=== PATIENT | female | born 1965 | race Caucasian/White ===

== ENCOUNTER 2017-03-16 21:00 | Emergency (ER) | payer MEDICAID ==
[~2017-03-16] VITALS: Ht 157.5 cm; Wt 54.4 kg
--- NOTE | 2017-03-16 21:11 | NUR ---
PT AMBUALTORY TO ER BED 1 PT C/O "LOWER ABD PAIN X1 DAY"; DENIES N/V. PT AOX4 RR EVEN AND UNLABORED. NO SOB NOTED. NAD NOTED. NO NVD AT THIS TIME. PT NOT DIAPHORETIC. PT GOWNED AND PLACED ON MONITOR WAITING FOR MD MAJOR.
--- NOTE | 2017-03-16 21:31 | NUR ---
NEISHA ESCAMILLA AT BEDSIDE FOR EVAL.
[2017-03-16 21:49] LABS: BASOPHILS % (AUTO) 0.2 % (0.0-2.0); EOSINOPHILS % (AUTO) 0.2 % (0.0-6.0); HEMATOCRIT 40 % (33-45); HEMOGLOBIN 13.3 g/dL (11.5-14.8); LYMPHOCYTES # (AUTO) 1.1 /CMM (0.8-4.8); LYMPHOCYTES % (AUTO) 8.9 % (20.0-44.0); MEAN CORPUSCULAR HEMOGLOBIN 27 PG (26.0-33.0); MEAN CORPUSCULAR HGB CONC 34 g/dl (31.0-36.0); MEAN CORPUSCULAR VOLUME 81 fL (82-100); MONOCYTES # (AUTO) 0.7 /CMM (0.1-1.30); MONOCYTES % (AUTO) 5.9 % (2.0-12.0); NEUTROPHILS # (AUTO) 10.1 /CMM (1.8-8.9); NEUTROPHILS % (AUTO) 84.8 % (43.0-81.0); PLATELET COUNT (AUTO) 230 /CMM (150-450); RDW COEFFICIENT OF VARIATION 12.3 (11.5-15.0); RED BLOOD CELL COUNT(AUTO) 4.88 MIL/uL (4.0-5.2); WHITE BLOOD COUNT (AUTO) 11.9 K/uL (4.3-11.0)
[2017-03-16] MEDS ORDERED: ONDANSETRON HCL/PF 4 MG/2 ML VIAL ONE (21:56)
[2017-03-16 21:57] LABS: CALCIUM, SERUM 8.8 mg/dL (8.5-10.1); CREATININE 0.7 mg/dL (0.6-1.3)
[2017-03-16] MEDS ORDERED: IV NS 0.9% 2,000 ML ONE (21:57)
[2017-03-16] MEDS ORDERED: IV SET PRIMARY 1 EA INFUS.SET MC ONE (21:57)
[2017-03-16] MEDS ORDERED: ONDANSETRON HCL/PF 4 MG/2 ML VIAL IVP ONE (22:00)
[2017-03-16] MEDS ORDERED: IV NS 0.9% 1,000 ML BAG IV ONE (22:00)
[2017-03-16 22:05] LABS: ALBUMIN 3.8 g/dL (3.4-5.0); BILIRUBIN,DIRECT 0.1 mg/dL (0.0-0.2); BILIRUBIN,TOTAL 0.8 mg/dL (0.2-1.0); TOTAL PROTEIN, SERUM 7.6 g/dL (6.4-8.2)
[2017-03-16] MEDS ORDERED: POTASSIUM CHLORIDE 20 MEQ TAB.PRT.SR PO ONE ×2 (22:30→22:31)
--- NOTE | 2017-03-16 22:34 | NUR ---
URINE COLLECTED. CALLED LAB FOR NON PROFIT DIRECTOR.
--- NOTE | 2017-03-16 23:29 | NUR ---
PT PASSED PO CHALLENGE. PER [employer] FRANCINE MADE AWARE.
[2017-03-16 23:47] LABS: APPEARANCE,URINE CLEAR (CLEAR); BILIRUBIN,URINE NEGATIVE (NEGATIVE); BLOOD, URINE NEGATIVE Ery/uL (NEGATIVE); KETONES,URINE 3+ (NEGATIVE); LEUKOCYTE ESTERASE ,URINE 1+ (NEGATIVE); NITRITE, URINE NEGATIVE (NEGATIVE); PH,URINE 6.5 (5.0-8.0); PROTEIN,URINE NEGATIVE (NEGATIVE); UGLUCOSE NEGATIVE (NEGATIVE); UROBILINOGEN,URINE 0.2 EU/dL (0.2)
[2017-03-16 23:51] LABS: COLOR,URINE Light yellow (YELLOW)
[2017-03-16 23:56] LABS: BACTERIA,URINE 1+ /HPF (None Seen); PREGNANCY TEST URINE QUAL NEGATIVE (NEGATIVE); RBC,URINE 0-2 /HPF (0-2); SQUAMOUS EPITHELIAL CELL,UR Few /HPF (None Seen)
--- NOTE | 2017-03-17 00:16 | NUR ---
NEISHA ESCAMILLA AT BEDSIDE SPEAKING TO PT REGARDING RESULTS.
--- NOTE | 2017-03-17 00:18 | NUR ---
IV removed. Catheter intact and site benign. Pressure and 4x4 applied to site. No bleeding noted. Patient discharged to home in stable condition. Written and verbal after care instructions given. Patient verbalizes understanding of instruction. ambulatory with a steady gait
[2017-03-17 00:20] VITALS: BP 116/72
== END 2017-03-17 00:20 | disposition home or self-care (01) ==
LOC: ER 21:02
DX: R11.2 Nausea with vomiting, unspecified (principal); R19.7 Diarrhea, unspecified; E87.6 Hypokalemia; R82.71 Bacteriuria; E03.9 Hypothyroidism, unspecified
CPT/HCPCS: 36415; 80048; 80076; 81001; 83690; 84703; 85025; 87086; 96361; 99285; 96374; A4606; J2405; J7030; Z7610; 81000-TC

== ENCOUNTER 2017-03-20 13:22 | Inpatient (IN) | payer MEDICAID ==
[~2017-03-20] VITALS: Ht 157.5 cm; Wt 50.8 kg
[2017-03-20] MEDS ORDERED: ONDANSETRON HCL/PF 4 MG/2 ML VIAL IVP ONE (13:30)
[2017-03-20] MEDS ORDERED: IV NS 0.9% 1,000 ML BAG IV ONE (13:30)
[2017-03-20] MEDS ORDERED: IV NS 0.9% 1,000 ML ONE (13:33)
[2017-03-20] MEDS ORDERED: IV SET PRIMARY 1 EA INFUS.SET MC ONE (13:33)
[2017-03-20] MEDS ORDERED: ONDANSETRON HCL/PF 4 MG/2 ML VIAL ONE (13:33)
--- NOTE | 2017-03-20 13:45 | NUR ---
PT CAME IN FOR ABD PAIN X 3 DAYS. WAS RECENTLY HERE FOR SAME SYMPTOMS. DENIES N/V/D. NO FEVER. VSS. SEEN BY MD FOR EVAL. SAFETY AND COMFORT MEASURES PROVIDE. WILL MONITOR.
[2017-03-20 13:54] LABS: BASOPHILS % (AUTO) 0.4 % (0.0-2.0); EOSINOPHILS # (AUTO) 0.1 /CMM (0.0-0.7); EOSINOPHILS % (AUTO) 1.2 % (0.0-6.0); HEMATOCRIT 42 % (33-45); HEMOGLOBIN 14.1 g/dL (11.5-14.8); LYMPHOCYTES # (AUTO) 1.3 /CMM (0.8-4.8); LYMPHOCYTES % (AUTO) 19.3 % (20.0-44.0); MEAN CORPUSCULAR HEMOGLOBIN 27 PG (26.0-33.0); MEAN CORPUSCULAR HGB CONC 33 g/dl (31.0-36.0); MEAN CORPUSCULAR VOLUME 81 fL (82-100); MONOCYTES # (AUTO) 0.7 /CMM (0.1-1.30); MONOCYTES % (AUTO) 10.3 % (2.0-12.0); NEUTROPHILS # (AUTO) 4.7 /CMM (1.8-8.9); NEUTROPHILS % (AUTO) 68.8 % (43.0-81.0); PLATELET COUNT (AUTO) 300 /CMM (150-450); RDW COEFFICIENT OF VARIATION 13.1 (11.5-15.0); RED BLOOD CELL COUNT(AUTO) 5.26 MIL/uL (4.0-5.2); WHITE BLOOD COUNT (AUTO) 6.9 K/uL (4.3-11.0)
[2017-03-20 14:13] LABS: CREATININE 0.8 mg/dL (0.6-1.3); POTASSIUM 3.1 mmol/L (3.5-5.1)
[2017-03-20 14:17] LABS: ALBUMIN 3.8 g/dL (3.4-5.0); BILIRUBIN,DIRECT 0.1 mg/dL (0.0-0.2); BILIRUBIN,TOTAL 0.4 mg/dL (0.2-1.0)
--- NOTE | 2017-03-20 14:20 | NUR ---
PT MEDICATED ORDERED.
[2017-03-20 14:27] LABS: APPEARANCE,URINE Hazy (CLEAR); BILIRUBIN,URINE Negative (NEGATIVE); BLOOD, URINE Trace-intact Ery/uL (NEGATIVE); COLOR,URINE Yellow (YELLOW); KETONES,URINE 15 (NEGATIVE); LEUKOCYTE ESTERASE ,URINE Trace (NEGATIVE); NITRITE, URINE Negative (NEGATIVE); PROTEIN,URINE Trace mg/dl (NEGATIVE); UGLUCOSE Negative (NEGATIVE)
[2017-03-20 14:29] LABS: PREGNANCY TEST URINE QUAL NEGATIVE (NEGATIVE)
[2017-03-20 14:33] LABS: BACTERIA,URINE None seen /HPF (None Seen); MUCUS,URINE Few /LPF (None Seen); RBC,URINE 0-3 /HPF (0-2); SQUAMOUS EPITHELIAL CELL,UR Few /HPF (None Seen)
[2017-03-20] MEDS ORDERED: LEVOFLOXACIN 750 MG /D5W 150ML 150 ML IV ONE (15:30)
[2017-03-20] MEDS ORDERED: METRONIDAZOLE 500MG/ NS 100ML 100 ML IV ONE (15:30)
--- NOTE | 2017-03-20 15:46 | NUR ---
CALLED DR BARBOSA'S ANSWERING SERVICE AND REFERRED TO NUMBER FOR [facility] [employer] [phone]
[2017-03-20] MEDS ORDERED: OMEP20TA68 PO (15:52)
[2017-03-20] MEDS ORDERED: LEVO100T9 PO (15:52)
--- NOTE | 2017-03-20 16:00 | NUR ---
PAGED DR ZACK ROLDAN FOR ADMISSION
[2017-03-20] MEDS ORDERED: Z GUARD REMEDY 2 OZ OINT TP PRN (17:00)
[2017-03-20] MEDS ORDERED: HYDROCODONE/APAP 5/325MG 1 EACH TABLET PO PRN (17:00)
[2017-03-20] MEDS ORDERED: ZOLPIDEM TARTRATE 5 MG TABLET PO PRN (17:00)
[2017-03-20] MEDS ORDERED: MAGNESIUM HYDROXIDE 30 ML UDC PO PRN (17:00)
[2017-03-20] MEDS ORDERED: MAG HYDROX/AL HYDROX/SIMETH 30 ML UDC PO PRN (17:00)
[2017-03-20] MEDS ORDERED: ACETAMINOPHEN 325 MG TABLET PO PRN (17:00)
[2017-03-20] MEDS ORDERED: ONDANSETRON HCL/PF 4 MG/2 ML VIAL IVP PRN (17:00)
--- NOTE | 2017-03-20 17:09 | NUR ---
REPORT GIVEN TO ELIAN SHIPMAN FOR MS [id number]
--- NOTE | 2017-03-20 17:30 | NUR ---
MS RN NOTES PATIENT ARRIVED TO UNIT IN STABLE CONDITION. PATIENT C/O ABDOMINAL PAIN. PATIENT STATES SHE IS HUNGRY. WILL ORDER CLEAR LIQUID TRAY FOR HER. PATIENT IS A/OX4. NO S/S OF DISTRESS NOTED. NO SOB NOTED. ORIENTED PATIENT TO THE ROOM. IV IS PATENT AND INTACT IN L HAND 20G. CALL LIGHT IS WITHIN REACH. BED IS IN LOWEST, LOCKED POSITION. WILL CONTINUE TO MONITOR THROUGHOUT SHIFT.
[2017-03-20] MEDS ORDERED: METRONIDAZOLE 500MG/ NS 100ML 500 MG in PREMIX 1 EA IV SCH (18:00)
[2017-03-20] MEDS ORDERED: LEVOFLOXACIN 750 MG /D5W 150ML 750 MG in PREMIX 1 EA IV SCH (18:00)
[2017-03-20] MEDS ORDERED: MORPHINE SULFATE INJ 2 MG/ML DISP.SYRIN IV PRN (18:00)
--- NOTE | 2017-03-20 19:10 | NUR ---
MS RN NOTES PATIENT IS A/OX4. NO DISTRESS NOTED. NO SOB NOTED. IV IS PATENT AND INTACT. ALL PATIENT NEEDS HAVE BEEN MET. PATIENT TOLERATED CLEAR LIQUID DIET WELL. CALL LIGHT WITHIN REACH. BED IS IN LOWEST, LOCKED POSITION. WILL ENDORSE CARE TO PM SHIFT.
[2017-03-20] MEDS ORDERED: IV SET PRIMARY PUMP SET 1 EA INFUS.SET MC ONE (19:17)
[2017-03-20] MEDS: IV 1/2NS 1000 ML 1,000 ML IV PRN (19:24)
--- NOTE | 2017-03-20 19:30 | NUR ---
MS RN NOTE RECEIVED PATIENT AWAKE ALERT ND ORIENTED IN BED. DENIES ANY PAIN OR DISCOMFORT AT THIS TIME. IV SITE INTACT, WITH FLUIDS RUNNING ORDERED. NO SOB OR RESPIRATORY DISTRESS NOTED. BED LOCKED AND IN LOWEST POSITION. SIDE RAILS UP, CALL LIGHT WITHIN REACH. WILL CONTINUE TO MONITOR.
[2017-03-20 20:00] VITALS: BP 98/52
[2017-03-20 22:00] VITALS: BP 98/52
[2017-03-21 06:54] LABS: CHOLESTEROL 182 mg/dL (<200); HDL CHOLESTEROL 39 mg/dL (40-60); LDL 109 mg/dL (0-99); TRIGLYCERIDES 73 mg/dL (30-150)
[2017-03-21 06:59] LABS: BASOPHILS % (AUTO) 0.5 % (0.0-2.0); EOSINOPHILS # (AUTO) 0.1 /CMM (0.0-0.7); EOSINOPHILS % (AUTO) 2.1 % (0.0-6.0); HEMATOCRIT 37 % (33-45); HEMOGLOBIN 12.5 g/dL (11.5-14.8); LYMPHOCYTES # (AUTO) 1.4 /CMM (0.8-4.8); LYMPHOCYTES % (AUTO) 30.8 % (20.0-44.0); MEAN CORPUSCULAR HEMOGLOBIN 27 PG (26.0-33.0); MEAN CORPUSCULAR HGB CONC 34 g/dl (31.0-36.0); MEAN CORPUSCULAR VOLUME 80 fL (82-100); MONOCYTES # (AUTO) 0.5 /CMM (0.1-1.30); MONOCYTES % (AUTO) 10.2 % (2.0-12.0); NEUTROPHILS # (AUTO) 2.6 /CMM (1.8-8.9); NEUTROPHILS % (AUTO) 56.4 % (43.0-81.0); PLATELET COUNT (AUTO) 243 /CMM (150-450); RDW COEFFICIENT OF VARIATION 13.2 (11.5-15.0); RED BLOOD CELL COUNT(AUTO) 4.63 MIL/uL (4.0-5.2); WHITE BLOOD COUNT (AUTO) 4.6 K/uL (4.3-11.0)
[2017-03-21 07:00] LABS: CALCIUM, SERUM 8.4 mg/dL (8.5-10.1); CARBON DIOXIDE 29 mmol/L (21-32); CHLORIDE 106 mmol/L (98-107); CREATININE 0.5 mg/dL (0.6-1.3); GLUCOSE 95 mg/dL (74-106); MAGNESIUM 1.6 mg/dL (1.8-2.4); PHOSPHORUS 3.2 mg/dL (2.5-4.9); POTASSIUM 3.4 mmol/L (3.5-5.1); SODIUM SERUM 143 mmol/L (136-145); UREA NITROGEN, BLOOD 3 mg/dL (7-18)
[2017-03-21 07:21] LABS: THYROID STIMULATING HORMONE < 0.007 uIU/mL (0.358-3.74)
--- NOTE | 2017-03-21 07:31 | NUR ---
AM RN NOTE Received patient awake, lying in her bed. Denies any pain at this time. IV site intact and patent. Bed in low locked positon. Will continue to monitor.
[2017-03-21 08:00] VITALS: BP 117/63
[2017-03-21] MEDS: PANTOPRAZOLE 40 MG TABLET.DR PO SCH (08:09)
[2017-03-21] MEDS: LEVOTHYROXINE SODIUM 100 MCG TABLET PO SCH (08:09)
[2017-03-21] MEDS ORDERED: POTASSIUM CHLORIDE 20 MEQ TAB.PRT.SR PO SCH (11:00)
[2017-03-21] MEDS ORDERED: SECONDARY IV SET 1 EA INFUS.SET MC ONE ×2 (11:23→21:48)
[2017-03-21] MEDS: Magnesium 1GM/D5W 100ML PREMIX 100 ML IV SCH ×2 (11:29→13:19)
[2017-03-21 16:00] VITALS: BP 96/56
[2017-03-21] MEDS: LEVOFLOXACIN 750 MG /D5W 150ML 750 MG in PREMIX 1 EA IV SCH (17:07)
--- NOTE | 2017-03-21 18:37 | NUR ---
AM RN NOTE Patient lying in her bed watching TV, no acute distress noted. IV site intact and patent. Will endorse care to next shift.
[2017-03-21 20:00] VITALS: BP 105/64
[2017-03-21 22:00] VITALS: BP 105/64
[2017-03-21] MEDS: METRONIDAZOLE 500MG/ NS 100ML 500 MG in PREMIX 1 EA IV SCH (22:04)
[2017-03-21] MEDS ORDERED: METRONIDAZOLE 250 MG TABLET PO SCH (23:00)
[2017-03-21] MEDS ORDERED: METRONIDAZOLE 500MG/ NS 100ML 500 MG in PREMIX 1 EA IV SCH (23:00)
--- NOTE | 2017-03-21 23:30 | NUR ---
RN NOTES: NOTED THAT L HAND PIV SITE SLIGHTLY SWOLLEN AND TENDER. REMOVED IV. ATTEMPTED TO REINSERT 2X. REINSERTED NEW PIV OVER R HAND/ THUMB G24, INTACT AND PATENT TO FLUSH. ELEVATED L HAND ON PILLOW. WILL CONT TO MONITOR.
[2017-03-22] MEDS: METRONIDAZOLE 500MG/ NS 100ML 500 MG in PREMIX 1 EA IV SCH ×4 (05:44→23:27)
--- NOTE | 2017-03-22 06:13 | NUR ---
MS RN NOTE PATIENT STABLE. DENIES ANY PAIN OR DISCOMFORT. IV SITE TO RIGHT THUMB INTACT, WITH FLUIDS RUNNING ORDERED. NO INFILTRATION NOTED. ALL NEEDS MET AND ATTENDED TO. WILL ENDORSE TO DAY SHIFT FOR TEVIN.
[2017-03-22] MEDS: LEVOTHYROXINE SODIUM 100 MCG TABLET PO SCH (06:38)
[2017-03-22] MEDS: PANTOPRAZOLE 40 MG TABLET.DR PO SCH (06:38)
[2017-03-22 07:01] LABS: CALCIUM, SERUM 8.5 mg/dL (8.5-10.1); CREATININE 0.6 mg/dL (0.6-1.3); MAGNESIUM 2.1 mg/dL (1.8-2.4); POTASSIUM 3.8 mmol/L (3.5-5.1)
--- NOTE | 2017-03-22 07:51 | NUR ---
MS RN NOTES RECEIVED PATIENT RESTING IN BED, AWAKE AND ORIENTED X4. NOT IN ANY DISTRESS, NO S/S OF DISCOMFORT, PAIN NOTED. NO SOB, ON ROOM AIR WITH 96% 02 SAT. PATIENT DENIES ABDOMINAL PAIN AT THIS TIME. IV IS PATENT AND INTACT TO L HAND 20G IV FLUIDS INFUSING AT 75CC/HR. SAFETY MEASURES RENDERED, CALL LIGHT IS WITHIN REACH. BED IS IN LOWEST, LOCKED POSITION. WILL CONTINUE TO MONITOR.
[2017-03-22 08:00] VITALS: BP 106/74
[2017-03-22 16:00] VITALS: BP 112/69
--- NOTE | 2017-03-22 16:20 | NUR ---
MS/RN NOTES PATIENT RESTING IN BED COMFORTABLY. NO CHANGES NOTED. APPEARS CALM AND STABLE WITH SISTER AT BEDSIDE. PATIENT COOPERATIVE WITH ATTENDED CARE. WILL CONTINUE TO MONITOR.
--- NOTE | 2017-03-22 17:24 | NUR ---
MS/RN NOTES PATIENT APPEARS CALM AND RESTFUL. STABLE WITH NO SIGNIFICANT CHANGES. IV ANTIBIOTICS ADMINISTERED ORDERED. DIET ADVANCED, TOLERATING WELL WITH NO COMPLICATIONS, NO S/S OF ANTIBIOTIC REACTION/SIDE EFFECT NOTED.
[2017-03-22] MEDS: LEVOFLOXACIN 750 MG /D5W 150ML 750 MG in PREMIX 1 EA IV SCH (18:27)
--- NOTE | 2017-03-22 18:40 | NUR ---
MS/RN NOTES PATIENT RESTING IN BED COMFORTABLY. STABLE WITH NO CHANGES IN CONDITION. HUBERT GRAVES AT BEDSIDE. DISCUSSED PLAN OF CARE WITH PATIENT/ FAMILY AND AGREED. PATIENT TO STAY NPO FOR EGD TOMORROW. ALL MEDICATIONS AND ANTIBIOTICS GIVEN SCHEDULED. ALL NEEDS MET AND ATTENDED, SAFETY MEASURES RENDERED. WILL ENDORSE CARE TO LYE MACHINE OPERATOR FOR TEVIN.
--- NOTE | 2017-03-22 19:40 | NUR ---
MS RN NOTE: PATIENT RESTING IN BED, NO ACUTE DISTRESS NOTED. BREATHING EVEN AND UNLABORED, NO SOB NOTED. IV TO RIGHT THUMB IN PLACE. PATIENT WILL POSSIBLY HAVE EGD IN MORNING AND INFORMED PATIENT NOT TO EAT OR DRINK AFTER MIDNIGHT. CONSENT TO BE SIGNED. BED LOCKED AND IN LOWEST POSITION, CALL LIGHT IN REACH. WILL CONTINUE TO MONITOR.
[2017-03-22 20:14] VITALS: BP 139/85
[2017-03-22] MEDS ORDERED: SECONDARY IV SET 1 EA INFUS.SET MC ONE (23:13)
[2017-03-22] MEDS ORDERED: IV SET PRIMARY PUMP SET 1 EA INFUS.SET MC ONE (23:14)
[2017-03-22] MEDS: IV 1/2NS 1000 ML 1,000 ML IV PRN (23:27)
--- NOTE | 2017-03-23 00:15 | NUR ---
MS RN NOTE: PATIENT NPO AND EXPLAINED TO PATIENT THAT SHE CAN NOT EAT OR DRINK ANYTHING FOR POSSIBLE EGD IN MORNING. CONSENT SIGNED AND FILLED IN CHART. WILL CONTINUE TO MONITOR.
[2017-03-23] MEDS ORDERED: SUCRALFATE 1 G/10 ML UDC PO ONE (01:30)
[2017-03-23] MEDS ORDERED: SUCRALFATE 1 G/10 ML UDC ONE (01:35)
[2017-03-23] MEDS: METRONIDAZOLE 500MG/ NS 100ML 500 MG in PREMIX 1 EA IV SCH ×3 (04:40→17:13)
--- NOTE | 2017-03-23 04:45 | NUR ---
MS RN NOTE: PATIENT COMPLAINS OF NAUSEA, AND HEARTBURN. ZOFRAN 4MG IV GIVEN PER MD ORDER. WILL CONTINUE TO MONITOR.
--- NOTE | 2017-03-23 06:10 | NUR ---
MS RN NOTE: PATIENT RESTING IN BED, NO ACUTE DISTRESS NOTED. BREATHING EVEN AND UNLABORED, NO SOB NOTED. IV TO RIGHT THUMB IN PLACE, INFUSING 1/2NS AT 75 ML/HR. BED LOCKED AND IN LOWEST POSITION, CALL LIGHT IN REACH. WILL ENDORSE TO DAY NURSE TO CONTINUE WITH PLAN OF CARE.
--- NOTE | 2017-03-23 07:56 | NUR ---
RN NOTES PER REPORT FROM ENVIRONMENTAL SERVICES SPECIALIST. PATIENT WAS TOLD BY MD THAT SHE WOULD HAVE A EGD TODAY. CONSENTS WERE OBTAINED. DR GRAVES WROTE IN HIS NOTES THAT THE PATIENT MAY HAVE EGD TODAY AND ALSO TO HAVE EGD OUTPATIENT. WILL CLARIFY WITH MD TODAY IF PATIENT WILL BE HAVING EGD BEFORE ADMINISTERING MORNING MEDS.
[2017-03-23 08:00] VITALS: BP 99/55
[2017-03-23] MEDS: PANTOPRAZOLE 40 MG TABLET.DR PO SCH (08:50)
[2017-03-23] MEDS: LEVOTHYROXINE SODIUM 100 MCG TABLET PO SCH (08:52)
[2017-03-23] MEDS ORDERED: LEVO500T15 PO (11:36)
[2017-03-23] MEDS ORDERED: OMEP1CAP PO (11:36)
[2017-03-23] MEDS ORDERED: SUCR1ORA2 PO (11:36)
[2017-03-23] MEDS: SUCRALFATE 1 G/10 ML UDC PO SCH ×2 (12:02→17:13)
--- NOTE | 2017-03-23 16:44 | NUR ---
RN NOTES PATIENT IS REFUSING DISCHARGE PICTURES. STATES, "THERE IS NOTHING THERE, I DON'T THINK YOU NEED IT." I EXPLAINED TO THE PATIENT THE IMPORTANCE OF TAKING PHOTOS OF SKIN ISSUES AT DISCHARGE, BUT PATIENT IS STILL REFUSING.
[2017-03-23] MEDS ORDERED: LEVOFLOXACIN (750 MG) 750 MG TABLET PO SCH (18:00)
[2017-03-23 18:10] VITALS: BP 110/55
--- NOTE | 2017-03-23 18:39 | NUR ---
MS RN CLOSING NOTES NO SIGNIFICANT CHANGES IN PATIENT CONDITION THROUGHOUT THE SHIFT. NO SOB OR DISTRESS NOTED AT THIS TIME. PATIENT DENIES SIGNIFICANT PAIN. BED IN A LOW POSITION, CALL LIGHT WITHIN PATIENT REACH. PATIENT DUE FOR DISCHARGE ONCE HER SISTER IS HERE AND OFF WORK. WILL ENDORSE FOR TEVIN.
== END 2017-03-23 19:05 | disposition home or self-care (01) | DRG 244 ==
LOC: ER 13:23 → MEDSG2 17:16
DX: K57.32 Diverticulitis of large intestine without perforation or abscess without bleeding (principal); E87.1 Hypo-osmolality and hyponatremia; E03.9 Hypothyroidism, unspecified; J45.909 Unspecified asthma, uncomplicated; K21.9 Gastro-esophageal reflux disease without esophagitis; G31.84 Mild cognitive impairment of uncertain or unknown etiology; E86.0 Dehydration
CPT/HCPCS: 36415; 80048-TC; 80061-TC; 80076-TC; 81000-TC; 83605-TC; 83690-TC; 83735-TC; 84100-TC; 84443-TC; 84703-TC; 85025-TC; 87040-TC; 87081-TC; A4216; A4606; J1956; J2405; J3475; J3490; J7030; Z7610

== ENCOUNTER 2017-09-30 03:54 | Emergency (ER) | payer MEDICAID ==
[~2017-09-30] VITALS: Ht 157.5 cm; Wt 52.2 kg
[~2017-09-30 03:54] MED LIST: LEVO100T9 PO; LEVO500T75 PO; OMEP1CAP PO; SUCR1ORA4 PO
[2017-09-30] MEDS ORDERED: IV NS 0.9% 1,000 ML BAG IV ONE (06:30)
--- NOTE | 2017-09-30 06:45 | NUR ---
PT RECEIVED FROM [facility] C/O INDIGESTION. NO SOB NOTED AT THIS TIME WITH ADEQUATE CHEST RISE AND FALL. A/OX4 VSS NAD
[2017-09-30] MEDS ORDERED: SIMETHICONE 80 MG TAB.CHEW ONE (06:49)
--- NOTE | 2017-09-30 06:50 | NUR ---
STARTED A SALINE LOCK ON THE LFA G20.
[2017-09-30 06:56] LABS: HEMATOCRIT 40 % (33-45); HEMOGLOBIN 13.6 g/dL (11.5-14.8); LYMPHOCYTES # (AUTO) 0.8 /CMM (0.8-4.8); MEAN CORPUSCULAR HEMOGLOBIN 28 PG (26.0-33.0); MEAN CORPUSCULAR HGB CONC 35 g/dl (31.0-36.0); MEAN CORPUSCULAR VOLUME 80 fL (82-100); MONOCYTES # (AUTO) 0.5 /CMM (0.1-1.30); MONOCYTES % (AUTO) 4.3 % (2.0-12.0); NEUTROPHILS % (AUTO) 88.7 % (43.0-81.0); PLATELET COUNT (AUTO) 227 /CMM (150-450); RDW COEFFICIENT OF VARIATION 13.4 (11.5-15.0); RED BLOOD CELL COUNT(AUTO) 4.94 MIL/uL (4.0-5.2); WHITE BLOOD COUNT (AUTO) 11.3 K/uL (4.3-11.0)
[2017-09-30] MEDS ORDERED: SIMETHICONE 80 MG TAB.CHEW PO ONE (07:00)
--- NOTE | 2017-09-30 07:05 | NUR ---
PT OFF TO CT SCAN
[2017-09-30 07:08] LABS: CALCIUM, SERUM 9.2 mg/dL (8.5-10.1); CREATININE 0.6 mg/dL (0.6-1.3); POTASSIUM 3.3 mmol/L (3.5-5.1)
[2017-09-30 07:11] LABS: INR 0.94 (0.87-1.13); PROTHROMBIN TIME 9.8 SECS (9.5-12.7)
[2017-09-30 07:22] LABS: BILIRUBIN,DIRECT 0.1 mg/dL (0.0-0.2); BILIRUBIN,TOTAL 0.6 mg/dL (0.2-1.0); TOTAL PROTEIN, SERUM 7.7 g/dL (6.4-8.2)
[2017-09-30 07:53] LABS: APPEARANCE,URINE CLEAR (CLEAR); BILIRUBIN,URINE NEGATIVE (NEGATIVE); BLOOD, URINE NEGATIVE Ery/uL (NEGATIVE); COLOR,URINE YELLOW (YELLOW); KETONES,URINE NEGATIVE (NEGATIVE); LEUKOCYTE ESTERASE ,URINE NEGATIVE (NEGATIVE); NITRITE, URINE NEGATIVE (NEGATIVE); PROTEIN,URINE NEGATIVE (NEGATIVE); UGLUCOSE NEGATIVE (NEGATIVE); UROBILINOGEN,URINE 0.2 EU/dL (0.2)
[2017-09-30 08:19] VITALS: BP 138/80
--- NOTE | 2017-09-30 08:20 | NUR ---
Patient discharged to home in stable condition. Written and verbal after care instructions given. Patient verbalizes understanding of instruction.IV removed. Catheter intact and site benign. Pressure and 4x4 applied to site. No bleeding noted.
== END 2017-09-30 08:21 | disposition home or self-care (01) ==
LOC: ER 03:59
DX: K57.92 Diverticulitis of intestine, part unspecified, without perforation or abscess without bleeding (principal); J45.909 Unspecified asthma, uncomplicated; E03.9 Hypothyroidism, unspecified
CPT/HCPCS: 36415; 74176; 80048; 80076; 81001; 85025; 85730; 86850; 99285; A4606; J7030 ×2; Z7610; 81000-TC

== ENCOUNTER 2020-08-07 23:31 | Emergency (ER) | payer MEDICAID, OTHER ==
[~2020-08-07] VITALS: Ht 157.5 cm; Wt 49.4 kg
[~2020-08-07 23:31] MED LIST changes: +LEVO500T23 PO; -LEVO500T75 PO
[2020-08-07 23:39] VITALS: BP 143/77
--- NOTE | 2020-08-07 23:47 | NUR ---
PATIENT CAME TO ER BED 1 BIB RA FROM HOME. PATIENT CAME TO ER C/O ABDOMINAL PAIN FROM THE SURGICAL SITE RECEIVED LAST WEEK FROM [facility] FOR A COLOSTOMY REVISION. PER AYALA BANKS, PATIENT'S SISTER, PATIENT WAS DISCHARGED TODAY FROM [facility], [place] BY SURGEON. PATIENT IS AAOX4. NO SOB. SITE OF SURGERY IS RED AND PATIENT IS CURRENTLY RECEIVING ANTIBIOTICS AT HOME. PATIENT IS BREATHING EVENLY AND UNLABORED ON ROOM AIR. CONNECTED TO THE MONITOR.
--- NOTE | 2020-08-08 01:28 | NUR ---
Patient discharged to home in stable condition. Written and verbal after care instructions given. Patient verbalizes understanding of instruction. Patient is picked up by Diane [facility]. Patient is ambulatory with a steady gait.
== END 2020-08-08 01:35 | disposition home or self-care (01) ==
LOC: ER 23:34
DX: T81.49XA Infection following a procedure, other surgical site, initial encounter (principal); J45.909 Unspecified asthma, uncomplicated; E03.9 Hypothyroidism, unspecified; Z98.890 Other specified postprocedural states; Z88.2 Allergy status to sulfonamides; Z60.2 Problems related to living alone; Z79.899 Other long term (current) drug therapy

== ENCOUNTER 2021-01-21 20:47 | Emergency (ER) | payer OTHER ==
[~2021-01-21] VITALS: Ht 157.5 cm; Wt 49.4 kg
--- NOTE | 2021-01-21 21:08 | NUR ---
PT BIBCARETAKER C/O FLANK PAIN AND RECURRENT UTIS X3 MONTHS. PT AAOX 4 BREATHING EVENLY AND UNLABORED. PT STATES " I FEEL LIKE I HAVE TO PEE, BUT THEN NOTHING COMES OUT" PER PROCUREMENT PROFESSIONAL LOGISTICS, PAIN HAS MOVED TO RT FLANK. PT ATTACHED TO MONITOR AND POX. PT GIVEN BLANKET AND CALL LIGHT WITHIN REACH
--- NOTE | 2021-01-21 21:17 | NUR ---
URINE OBTAINED AND SENT TO LAB
[2021-01-21] MEDS ORDERED: ONDANSETRON 4 MG TAB.RAPDIS ONE (21:47)
[2021-01-21 21:53] LABS: COLOR,URINE YELLOW (YELLOW)
[2021-01-21 21:54] LABS: BILIRUBIN,URINE NEGATIVE (NEGATIVE); PH,URINE 6.5 (5.0-8.0); PROTEIN,URINE NEGATIVE (NEGATIVE); UGLUCOSE NEGATIVE (NEGATIVE); UROBILINOGEN,URINE 0.2 EU/dL (0.2)
[2021-01-21 21:55] LABS: LEUKOCYTE ESTERASE ,URINE NEGATIVE (NEGATIVE); NITRITE, URINE NEGATIVE (NEGATIVE)
[2021-01-21] MEDS ORDERED: ONDANSETRON 4 MG TAB.RAPDIS SL ONE (22:00)
--- NOTE | 2021-01-21 22:52 | NUR ---
CALLED LAB FOR FOLLOW UP ON BLOOD DRAW
[2021-01-21 23:03] LABS: BASOPHILS % (AUTO) 0.5 % (0.0-2.0); EOSINOPHILS % (AUTO) 1.4 % (0.0-6.0); HEMATOCRIT 35 % (33-45); HEMOGLOBIN 11.6 g/dL (11.5-14.8); LYMPHOCYTES # (AUTO) 1.2 /CMM (0.8-4.8); LYMPHOCYTES % (AUTO) 16.1 % (20.0-44.0); MEAN CORPUSCULAR HGB CONC 34 g/dl (31.0-36.0); MEAN CORPUSCULAR VOLUME 80 fL (82-100); MONOCYTES # (AUTO) 0.5 /CMM (0.1-1.30); MONOCYTES % (AUTO) 6.9 % (2.0-12.0); NEUTROPHILS # (AUTO) 5.6 /CMM (1.8-8.9); NEUTROPHILS % (AUTO) 75.1 % (43.0-81.0); PLATELET COUNT (AUTO) 248 /CMM (150-450); WHITE BLOOD COUNT (AUTO) 7.4 K/uL (4.3-11.0)
[2021-01-21 23:18] LABS: ALBUMIN 3.5 g/dL (3.4-5.0); BILIRUBIN,DIRECT 0.1 mg/dL (0.0-0.2); BILIRUBIN,TOTAL 0.3 mg/dL (0.2-1.0); CREATININE 0.9 mg/dL (0.6-1.3); TOTAL PROTEIN, SERUM 6.8 g/dL (6.4-8.2)
[2021-01-21 23:20] LABS: POTASSIUM 2.5 mmol/L (3.5-5.1)
--- NOTE | 2021-01-21 23:20 | NUR ---
PER LAB, POTASSIUM 2.5
[2021-01-21] MEDS ORDERED: KETOROLAC TROMETHAMINE INJ 30 MG/ML VIAL ONE (23:29)
[2021-01-21] MEDS ORDERED: KETOROLAC TROMETHAMINE INJ 60 MG/2 ML VIAL IM ONE (23:30)
[2021-01-21] MEDS ORDERED: POTASSIUM CL. PREMIX PERIPHER. 50 ML ONE (23:54)
[2021-01-21] MEDS ORDERED: POTASSIUM CHLORIDE 20 MEQ TAB.PRT.SR PO ONE (23:55)
[2021-01-22] MEDS ORDERED: KETOROLAC TROMETHAMINE INJ 30 MG/ML VIAL IV ONE
[2021-01-22] MEDS ORDERED: POTASSIUM CHLORIDE 20 MEQ TAB.PRT.SR PO ONE
[2021-01-22] MEDS: POTASSIUM CL. PREMIX PERIPHER. 50 ML IV SCH ×2 (00:31→01:50)
--- NOTE | 2021-01-22 00:31 | NUR ---
1st bag of 4 of 10MEQ kcl running left hand 20g end time [id number]
--- NOTE | 2021-01-22 00:55 | NUR ---
DR. CABRALES SPEAKING WITH [facility]
--- NOTE | 2021-01-22 01:40 | NUR ---
sakina [phone]. Pt will be going to [facility]
--- NOTE | 2021-01-22 01:50 | NUR ---
2nd bag of 4 10meq kcl running. end time [id number]
[2021-01-22] MEDS ORDERED: POTASSIUM CL. PREMIX PERIPHER. 50 ML ONE (01:56)
--- NOTE | 2021-01-22 03:06 | NUR ---
per BLAYNE Kerr pt going to [facility] accepted by Dr Kemp and Yaya Bain. Call report to [facility] at [phone]. Call the car looking for ride. Will call back with ambulance eta
--- NOTE | 2021-01-22 03:12 | NUR ---
attempted to give report to Jessika at [facility]. RN in another pt room. will call me back
--- NOTE | 2021-01-22 03:16 | NUR ---
[facility] ETA [phone]
--- NOTE | 2021-01-22 03:19 | NUR ---
ambulance eta [phone]
--- NOTE | 2021-01-22 03:19 | NUR ---
gave report to RAMONITA Rosen for mahin at [facility]
[2021-01-22 04:05] VITALS: BP 133/72
--- NOTE | 2021-01-22 04:20 | NUR ---
gave report to [facility]
== END 2021-01-22 04:20 | disposition short-term general hospital (02) ==
LOC: ER 20:59
DX: E87.6 Hypokalemia (principal); Z87.440 Personal history of urinary (tract) infections; R10.9 Unspecified abdominal pain; Z20.822 Contact with and (suspected) exposure to COVID-19; E03.9 Hypothyroidism, unspecified; J45.909 Unspecified asthma, uncomplicated; Z87.19 Personal history of other diseases of the digestive system
CPT/HCPCS: 36415; 76770; 80048; 80076; 81003; 83690; 83735; 84703; 85025; 87081; 87086; 87426; 93005; 96365; 96366; 99285; C9803; J3480 ×2; J7050; Q0162; J1885